=== PATIENT | female | born 1990 | race Two or more races ===

== ENCOUNTER 2021-05-22 06:00 | Day surgery (SDC) | payer OTHER | END 2021-05-22 12:30 | disposition home or self-care (01) | LOC: CIR.AMB 06:00 | PROVIDERS: ATTEND Orthopaedic Surgery Hand Surgery | DX: S62.637A Displaced fracture of distal phalanx of left little finger, initial encounter for closed fracture (principal); Z20.822 Contact with and (suspected) exposure to COVID-19 ==